=== PATIENT | male | born 1955 | race Caucasian/White ===

== ENCOUNTER → 2020-03-22 | Outpatient (CLI) | payer BC ==
--- NOTE | 2020-03-22 12:27 | MR ---
EXAMINATION TYPE: MR shoulder RT wo con DATE OF EXAM: 03/22/2020 COMPARISON: X-ray dated 03/13/2020 HISTORY: Right shoulder pain and loss of range of motion, hard to lift above head TECHNIQUE: Multiplanar, multisequence imaging of the right shoulder is performed without contrast. FINDINGS: There is arthropathy of the AC joint with impingement of the rotator cuff. There is a compl ete tear of the supraspinatus tendon and near complete tear infraspinatus tendon. Retraction of the t endon seen to the mid humeral head level. Fluid within the subacromial subdeltoid bursa noted. Insertion of the subscapularis demonstrates thic kening of the tendon. Partial tear suspected. Arthropathy of the AC joint results in impingement. Bicipital tendon is well situated within the bicipital groove with increased fluid surrounding the te ndon compatible with tendinosis. Bony labrum grossly intact and nonarthrogram technique. Suprascapular Notch appears intact. Glenohumeral ligaments appear to be intact. IMPRESSION: 1. Impingement secondary to AC joint arthropathy with complete tears of the supraspinatus and near co mplete tear of the infraspinatus tendon with retraction to the mid humeral head level. 2. Tendinopathy and partial tear insertion subscapularis tendon 3. Bicipital tendinosis.
== END | disposition home or self-care (01) ==
LOC: RADMRIMAIN 11:02
PROVIDERS: ATTEND Orthopaedic Surgery
DX: M75.121 Complete rotator cuff tear or rupture of right shoulder, not specified as traumatic (principal); M12.811 Other specific arthropathies, not elsewhere classified, right shoulder; M67.88 Other specified disorders of synovium and tendon, other site

== ENCOUNTER 2020-05-10 10:26 | Day surgery (SDC) | payer BC ==
[2020-05-08 09:36] VITALS: BMI 30.8
--- NOTE | 2020-05-09 15:56 | HP ---
HISTORY AND PHYSICAL DATE OF SURGERY: 05/10/2020 Louis Jain is a 65-year-old patient seen with progressive right shoulder pain. Options for treatment were discussed with him. He elected to proceed with right shoulder arthroscopy. Consent was obtained. PAST MEDICAL HISTORY: Nua-jsidtib-ctltzvsys diabetes, hypertension. PAST SURGICAL HISTORY: Noncontributory. DAILY MEDICATIONS: Januvia, metformin, antihypertensive. ALLERGIES: None. SOCIAL HISTORY: Denies tobacco use. PHYSICAL EVALUATION OF THE RIGHT SHOULDER: Flexion 140, abduction 130, external rotation is 10 with significant weakness, tenderness along the anterolateral acromion and rotator cuff insertion site. Impingement signs is positive 80 degrees. Drop-arm sign is positive. Distal neurovascular exam is intact. RIGHT SHOULDER RADIOGRAPHS: Revealed a type 2 anterior acromion, acromioclavicular joint osteoarthritis and cystic change of the greater tuberosity. An MRI of the right shoulder revealed impingement, large rotator cuff tendon tear, and biceps tendinitis. IMPRESSION: 1. Right shoulder impingement with rotator cuff tear. 2. Right shoulder acromioclavicular joint osteoarthritis. 3. Right shoulder biceps tendinitis. 4. Rmb-kuegnfv-uzeqhgcny diabetes. 5. Hypertension. PLAN: Right shoulder arthroscopy with subacromial decompression, arthroscopic rotator cuff repair, arthroscopic Idris procedure. Biceps tenotomy and debridement. MMODL / IJN: [id number] /
[2020-05-10] MEDS ORDERED: ONDANSETRON 4 MG/2 ML VIAL ONE (10:35)
[2020-05-10] MEDS ORDERED: DEXAMETHASONE SOD PHOSPHATE 10 MG/ML 1 ML VIAL IV ONE (11:13)
[2020-05-10] MEDS ORDERED: LACTATED RINGERS 1,000 ML IV ONE ×2 (11:15→13:41)
[2020-05-10] MEDS ORDERED: MIDAZOLAM 2 MG/2 ML VIAL IVP ONE (11:23)
[2020-05-10 11:38] LABS: Glucose,Whole Blood 159 mg/dL (75-99)
--- NOTE | 2020-05-10 11:59 | P.ANPRN ---
Procedure Note - Anesthesia - Nerve Block Performed Right Interscalene Single Time Out Performed: Yes Date of Procedure: 05/10/20 Procedure Start Time: : Procedure Stop Time: Location of Patient: PreOp Indication: Acute Post-Operative Pain, Requested by Surgeon Sedation Type: Sedate with meaningful contact maintained Preparation: Sterile Prep, Sterile Dressing Position: Sitting Catheter: None Needle Types: Pajunk Needle Gauge: 21 Ultrasound used to visualize needle placement: Yes Ultrasound used to observe medication spread: Yes Injectate: 0.5% Ropivacaine (see comment for volume) (30 ml + decadron 4 mg) Blood Aspirated: No Pain Paresthesia on Injection Noted: No Resistance on Injection: Normal Image Stored and Saved: Yes Events: Uneventful and Well Tolerated
[2020-05-10] MEDS ORDERED: DEXAMETHASONE SOD PHOSPHATE 4 MG/ML 1 ML VIAL ONE (12:11)
[2020-05-10] MEDS ORDERED: KETOROLAC 15 MG/ML 1 ML VIAL ONE (12:11)
[2020-05-10] MEDS ORDERED: SUCCINYLCHOLINE CHLORIDE 100 MG/5 ML SYR IV ONE (12:11)
[2020-05-10] MEDS ORDERED: ROPIVACAINE 5 MG/ML 30 ML VIAL ONE (12:11)
[2020-05-10] MEDS ORDERED: LIDOCAINE 1% INJ 10MG/ML (20 ML MDV) ONE (12:11)
[2020-05-10] MEDS ORDERED: fentaNYL (PF) 50 MCG/ML 2 ML AMP ONE (12:11)
[2020-05-10] MEDS ORDERED: PROPOFOL 10 MG/ML 20 ML VIAL IV ONE (12:11)
[2020-05-10] MEDS ORDERED: MIDAZOLAM 2 MG/2 ML VIAL ONE (12:11)
[2020-05-10 13:52] VITALS: TEMP 97
--- NOTE | 2020-05-10 13:55 | P.OP ---
Date of Procedure: 05/10/20 Preoperative Diagnosis: Right shoulder impingement Postoperative Diagnosis: 1. Right shoulder rotator cuff tear 2. Right shoulder impingement 3. Right shoulder acromioclavicular joint osteoarthritis 4. Right shoulder partial long head biceps tendon tear Procedure(s) Performed: 1. Right shoulder arthroscopic rotator cuff repair 2. Right shoulder arthroscopic subacromial decompression 3. Right shoulder arthroscopic Idris procedure 4. Right shoulder arthroscopic biceps tenotomy Implants: 44.75 Arthrex swivel lock anchors Anesthesia: GETA, regional (Interscalene block) Surgeon: Harley Reina Rayon Winder #1: Damian Wesley Estimated Blood Loss (ml): 10 Pathology: none sent Condition: stable Disposition: PACU Indications for Procedure: 65-year-old patient seen with progressive right shoulder pain. After treatment options were discussed, he elected to proceed with arthroscopy. Operative Findings: see description of procedure Description of Procedure: Patient underwent an interscalene block by department of anesthesia. The patient was then taken to the operative suite. The patient underwent a general anesthetic by the department of anesthesia. The patient was placed into a lateral position and secured. There was appropriate padding of the bony prominence. Right shoulder was then prepped and draped in normal sterile orthopedic fashion. We placed the extremity in 10 pounds of longitudinal traction. A posterior incision was now made for a posterior working portal site. The trocar and cannula were inserted into the glenohumeral joint. Arthroscopy was initiated. Spinal needle was now inserted anteriorly, to ascertain the anterior working portal site. An incision was now made in that area, a trocar was inserted followed by a probe. There was significant partial tearing long head biceps tendon encompassing probably 80% tendon. There were grade 1/2 chondromalacia changes of the glenohumeral joint. There was an obvious large rotator cuff tear. I performed an arthroscopic biceps tenotomy. The labrum was probed and found to be stable. Instruments now removed from glenohumeral joint. Utilizing the posterior working portal site, the trocar and cannula were inserted into the subacromial space. Arthroscopy initiated. I made an incision 2 fingerbreadths lateral to the acromion. I introduced my trocar followed by my ArthroCare ablator. I now began ablating thick subacromial bursal tissue, which exposed the undersurface of the anterior acromion. There was diminished subacromial space. There was a very prominent anterior acromion. A motorized bur was introduced and a subacromial decompression was performed. I also excised some osteophytes off the inferior aspect of the distal clavicle. The AC joint was visualized and noted to be fairly arthritic. The motorized bur was introduced in the anterior portal site and a Idris procedure was performed without difficulty, decompressing the AC joint nicely. I turned my attention to the rotator cuff. There was a 2.53 cm rotator cuff tear. I debrided the margins getting down to stable tendon tissue. I introduced my motorized bur and abraded the footprint area, getting some petechial bleeding. I now made an accessory portal site off the lateral aspect of the acromion. I punched 2 holes medial for medial row fixation with the assistance of Rc REA carefully tapping the punch with a mallet as I held the punch and the camera. I now introduced both anchors into the pre-punched holes and Rc REA tapped them with the mallet as I held anchors and the camera. Rc REA now screwed the anchors in place a while I held the anchor guide and camera. All 8 limbs of suture were now passed through good bites of rotator cuff tendon. I now punched 2 holes for lateral row fixation again I held the punch and camera while Rc REA used a mallet to tap in the punch. We now passed sutures through both anchors and individually I introduced the anchors into the pre- punch holes I held the anchor guide in position with one hand holding the camera with the other hand while Rc REA tensioned the sutures and screwed in the anchors one at a time. All residual suture limbs were now clipped. We had good compression of the tendon along the entire footprint. I injected 1 mL Renyte intra-articular. Instruments now removed from the portal sites. All portal sites were approximated with nylon suture. Sterile dressings were applied followed by a shoulder immobilizer. Damian REA assisted in this complex case. The patient was awakened, transferred to a bed, and taken to recovery in stable condition.
[2020-05-10 14:04] LABS: Glucose,Whole Blood 151 mg/dL (75-99)
[2020-05-10 15:19] VITALS: RESP 16
[2020-05-10 15:48] VITALS: BP 125/74; PULSE 88
== END 2020-05-10 15:48 | disposition home or self-care (01) ==
LOC: OR 10:26
PROVIDERS: ATTEND Orthopaedic Surgery
DX: M75.101 Unspecified rotator cuff tear or rupture of right shoulder, not specified as traumatic (principal); M75.41 Impingement syndrome of right shoulder; M19.011 Primary osteoarthritis, right shoulder; S46.111A Strain of muscle, fascia and tendon of long head of biceps, right arm, initial encounter; X58.XXXA Exposure to other specified factors, initial encounter; M25.711 Osteophyte, right shoulder; I10 Essential (primary) hypertension; E11.9 Type 2 diabetes mellitus without complications; Z87.891 Personal history of nicotine dependence; Z79.84 Long term (current) use of oral hypoglycemic drugs; Z79.899 Other long term (current) drug therapy; Z79.82 Long term (current) use of aspirin; Z98.890 Other specified postprocedural states
CPT/HCPCS: 64415; 76942; 29826; 29827; 29824; C1713 ×2; Q4212; J2250; J1100 ×2; J0690; J2405; J2001; J3010; J2795; J1885; J0330; J2704

== ENCOUNTER 2022-07-10 07:16 | Day surgery (SDC) | payer MEDICARE ==
[2022-07-08 15:20] VITALS: BMI 33.0
[2022-07-10] MEDS ORDERED: LIDOCAINE 1% (10MG/ML) FOR IV START INTRADERMA PRN (07:30)
[2022-07-10] MEDS ORDERED: LACTATED RINGERS 1,000 ML IV SCH (07:30)
[2022-07-10 08:05] LABS: Glucose,Whole Blood 180 mg/dL (70-110)
[2022-07-10] MEDS ORDERED: LACTATED RINGERS 1,000 ML IV ONE (08:05)
[2022-07-10 08:10] VITALS: TEMP 97
[2022-07-10] MEDS ORDERED: PROPOFOL 10 MG/ML 20 ML VIAL IV ONE (08:27)
--- NOTE | 2022-07-10 08:29 | P.GSHP ---
History of Present Illness H&P Date: 07/10/22 Chief Complaint: Screening colonoscopy This a 67-year-old male presents today for screening colonoscopy. Patient denies any significant GI complaints. Past Medical History Past Medical History: Diabetes Mellitus, Eye Disorder, GERD/Reflux, Hyperlipidemia, Hypertension, Osteoarthritis (OA) Additional Past Medical History / Comment(s): Right cataract. History of Any Multi-Drug Resistant Organisms: None Reported Past Surgical History: Appendectomy, Orthopedic Surgery, Tonsillectomy Additional Past Surgical History / Comment(s): Bilateral knee and right shoulder surgery, colonoscopy. Past Anesthesia/Blood Transfusion Reactions: No Reported Reaction Past Psychological History: No Psychological Hx Reported Smoking Status: Former smoker Past Alcohol Use History: Daily Additional Past Alcohol Use History / Comment(s): Quit smoking in 1995. Used to have one alcoholic drink daily none in 3 days. Past Drug Use History: None Reported - Past Family History Father Family Medical History: Cancer Mother Family Medical History: Cancer Sister(s) Family Medical History: Cancer Additional Family Medical History / Comment(s): Breast cancer. Brother(s) Family Medical History: Cancer Additional Family Medical History / Comment(s): Lymph node cancer. Medications and Allergies Home Medications Medication Instructions Recorded Confirmed Type Multivitamins, Thera [Multivitamin 1 tab PO DAILY 05/08/20 07/10/22 History (formulary)] Rosuvastatin Calcium [Crestor] 10 mg PO DAILY 05/08/20 07/10/22 History amLODIPine BESYLATE/BENAZEPRIL 1 each PO QAM 05/08/20 07/10/22 History [amLODIPine BESYLATE/BENAZEPRIL 5-10 MG] metFORMIN HCL [Glucophage] 1,000 mg PO BID 05/08/20 07/10/22 History sitaGLIPtin PHOSPHATE [Januvia] 100 mg PO DAILY 05/08/20 07/10/22 History Cinnamon Bark [Cinnamon] 1,200 mg PO DAILY 07/08/22 07/10/22 History Allergies Allergy/AdvReac Type Severity Reaction Status Date / Time No Known Allergies Allergy Verified 07/10/22 07:52 Surgical - Exam Vital Signs Temp Pulse Resp BP Pulse Ox 97 F L 77 17 134/68 96 07/10/22 08:05 07/10/22 08:05 07/10/22 08:05 07/10/22 08:05 07/10/22 08:05 - General well developed, well nourished, no distress - Eyes PERRL - ENT normal pinna - Neck no masses - Respiratory normal expansion - Cardiovascular Rhythm: regular Results - Labs Abnormal Lab Results - Last 24 Hours (Table) 07/10/22 Range/Units 08:04 POC Glucose (mg/dL) 180 H (70-110) mg/dL Assessment and Plan Assessment: We'll perform screening colonoscopy
[2022-07-10 09:13] VITALS: BP 125/70; PULSE 68; RESP 20
--- NOTE | 2022-07-24 08:15 | P.OP ---
Date of Procedure: 07/10/22 Preoperative Diagnosis: Screening colonoscopy Postoperative Diagnosis: Normal colonoscopy Procedure(s) Performed: Colonoscopy Anesthesia: MAC Surgeon: Tomas Resendez Pathology: none sent Condition: stable Disposition: PACU Description of Procedure: PROCEDURE: The patient was placed on the endoscopy table in the lateral position. Digital rectal examination was performed which revealed no abnormalities. The prostate was symmetrical without nodules. Flexible colonoscope was then placed in the patient's anus and passed throughout the entire colon. The ileocecal valve was visualized. The cecum, ascending, transverse, descending and sigmoid colon were normal. The rectum was normal as well. There were no masses, polyps or diverticula noted in the entire colon. SUMMARY OF FINDINGS: Normal colonoscopy.
== END 2022-07-10 09:23 | disposition home or self-care (01) ==
LOC: ORWHC2ENDO 07:16
PROVIDERS: ATTEND Surgery
DX: Z12.11 Encounter for screening for malignant neoplasm of colon (principal); E11.36 Type 2 diabetes mellitus with diabetic cataract; E78.5 Hyperlipidemia, unspecified; I10 Essential (primary) hypertension; K21.9 Gastro-esophageal reflux disease without esophagitis; M19.90 Unspecified osteoarthritis, unspecified site; Z79.84 Long term (current) use of oral hypoglycemic drugs; Z80.3 Family history of malignant neoplasm of breast; Z87.891 Personal history of nicotine dependence; Z90.49 Acquired absence of other specified parts of digestive tract
CPT/HCPCS: J2704; G0121; 45378

== ENCOUNTER → 2022-12-17 | Outpatient (CLI) | payer MEDICARE ==
--- NOTE | 2022-12-17 12:27 | US ---
EXAMINATION TYPE: US axilla LT DATE OF EXAM: 12/17/2022 COMPARISON: NONE CLINICAL INDICATION: Male, 67 years old with history of N63.32 UNSPECIFIED LUMP IN AXILLARY TAIL OF L FLACO; Patient noticed a fullness in upper left armpit extending into arm, no pain, no injury FINDINGS/IMPRESSION: Soft tissue scan of left axilla extending into left arm produced no sonographic findings for patients symptoms. No solid or cystic mass identified. No adenopathy demonstrated.
== END | disposition home or self-care (01) ==
LOC: RADUSWWP 12:04
PROVIDERS: ATTEND Family Medicine
DX: N63.32 Unspecified lump in axillary tail of the left breast (principal)

== ENCOUNTER → 2024-04-25 | Outpatient (CLI) | payer MEDICARE ==
--- NOTE | 2024-04-25 09:34 | XR ---
EXAMINATION TYPE: XR chest 2V DATE OF EXAM: 04/25/2024 COMPARISON: None INDICATION: Short of breath TECHNIQUE: Frontal and lateral views of the chest are obtained. FINDINGS: The heart size is normal. The pulmonary vasculature is normal. The lungs are clear. IMPRESSION: 1. No acute pulmonary process. [facility], , 04/25/2024 9:31 AM
== END | disposition home or self-care (01) ==
LOC: RADXRMAIN 08:36
PROVIDERS: ATTEND Family Medicine
DX: R06.02 Shortness of breath (principal)
CPT/HCPCS: 71046

== ENCOUNTER 2024-06-13 10:41 | Day surgery (SDC) | payer MEDICARE ==
[~2024-06-13 10:41] MED LIST: ALPRAZolam 0.25 MG TAB PO PRN; ALPRAZolam 0.5 MG TAB PO PRN; ASPIRIN 325 MG TAB PO STA; ATORVASTATIN 80 MG TAB PO STA; HEPARIN SODIUM,PORCINE (1 ML) 2,500 UNIT in SODIUM CHLORIDE 0.9% 250 ML IRRIGATION PRN; HEPARIN SODIUM,PORCINE 10,000 UNIT in SODIUM CHLORIDE 0.9% 1,000 ML IRRIGATION PRN; NITROGLYCERIN SL TABS 0.4 MG TAB SUBLINGUAL PRN
[2024-06-13 10:57] VITALS: RESP 8; TEMP 98
[2024-06-13 11:06] LABS: Glucose,Whole Blood 167 mg/dL (70-110)
[2024-06-13] MEDS: SODIUM CHLORIDE 0.9% 1,000 ML in EMPTY BAG 1 BAG IV SCH (11:32)
[2024-06-13] MEDS: IV FLUID CONTINUATION 1,000 ML IV ONE (11:33)
[2024-06-13] MEDS: HEPARIN SODIUM,PORCINE (1 ML) 2,500 UNIT in SODIUM CHLORIDE 0.9% 250 ML IRRIGATION ONE (11:56)
[2024-06-13] MEDS: HEPARIN SODIUM,PORCINE 10,000 UNIT in SODIUM CHLORIDE 0.9% 1,000 ML IRRIGATION ONE (11:56)
[2024-06-13] MEDS: fentaNYL (PF) 50 MCG/1 ML VIAL IVP ONE (12:10)
[2024-06-13] MEDS: MIDAZOLAM 2 MG/2 ML VIAL IVP ONE (12:10)
[2024-06-13] MEDS: LIDOCAINE 1% INJ 10MG/ML (20 ML MDV) SQ ONE (12:14)
[2024-06-13] MEDS: VERAPAMIL SYRINGE (5 MG/10 ML) INTRAARTER ONE (12:14)
[2024-06-13] MEDS: HEPARIN SODIUM 1,000 UN/ML (10ML VL) IVP ONE (12:18)
[2024-06-13] MEDS: CLOPIDOGREL 75 MG TAB PO ONE (12:45)
--- NOTE | 2024-06-13 12:57 | P.EN ---
Letter to the patient and family Today I did do a heart catheterization procedure for Mr. 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 He has around 80 to 90% blockage in the artery which goes on the back of the heart. There is a vessel he will be getting the stenting done at. The anterior part of the heart is supplied by artery, left into descending artery. This is a major artery of the heart. He has moderate diffuse disease in the artery with around 30 to 40% diffuse disease suggestive of that the vessel is affected by diabetes. To prevent any progression of his heart disease I would recommend very tight glycemic control, compliance to the medications including the 2 blood thinners, cholesterol medication and dietary modification with low-salt, low-cholesterol, low-fat, low carbohydrate diet. I recommend him to participate into cardiac rehab after his PCI. I would recommend for next 3 to 4 days for not using his wrist I would recommend him to take next 3 to 4 days easy If you notice any swelling in the wrist, increased bleeding, concerns of chest pain or chest pressure, please contact [facility]. Chapo Perez
[2024-06-13] MEDS: IOPAMIDOL-370 100ML BTL INJ ONE ×2 (13:22)
[2024-06-13] MEDS ORDERED: MAG HYDROX/AL HYDROX/SIMETH 30 ML CUP PO PRN (13:36)
[2024-06-13] MEDS ORDERED: ZOLPIDEM 5 MG TAB PO PRN (13:36)
[2024-06-13] MEDS ORDERED: RX INFO: IV CONTRAST WAS GIVEN 1 EACH MISC MISCELLANE PRN (13:36)
[2024-06-13] MEDS ORDERED: NITROGLYCERIN SL TABS 0.4 MG TAB SUBLINGUAL PRN (13:36)
[2024-06-13] MEDS ORDERED: ATROPINE SULFATE 0.1 MG/ML 10ML SYRINGE IV PRN (13:36)
--- NOTE | 2024-06-13 13:44 | P.CARDCATH ---
Date of Procedure: 06/13/24 Description of Procedure: PERCUTANEOUS TRANSLUMINAL CORONARY ANGIOPLASTY CLINICAL INFORMATION: The patient is a 69-year-old male with a known history of hypertension, hyperlipidemia and diabetes, followed by Dr. Perez who has been complaining of chest discomfort and had an abnormal stress echocardiogram, he underwent cardiac catheterization and was found to have chronically occluded RCA intimal disease in a diffuse pattern in the LAD and significant stenosis in the mid left circumflex involving the OM1. Recommendations were made regarding angioplasty and stenting. The procedure as well as the risks and the complications were discussed with the patient who was in full understanding and agreement. PROCEDURE: A 6 [place] CLS 3.5 guiding catheter was introduced into the system. After cannulating the left main, a 0.014 BMW J-wire was advanced across the lesion and positioned distally. Following that a 2.5 x 12 mm NC trek balloon was advanced and inflated at 12 atmosphere. After removing the balloon a [facility] eye IVUS catheter was introduced and revealed evidence of diffuse intimal disease with moderate calcification in the distal vessel measuring 3 to 3.5 mm in diameter. Following that a 3.0 x 28 mm Xience nam point stent was deployed. It was dilated at 16 yanci. After removing the balloon repeat IVUS imaging was performed. Subsequently a 3.5 x 15 mm NC trek balloon was advanced and 1 inflation at 10 yanci was done in the proximal segment of the stent. After the last inflation, after appropriate wait, the balloon and the guidewire were withdrawn back into the guiding catheter. Images were obtained and repeated. Those images reveal stable successful stenting. At that point, the guiding catheter, the balloon, and guidewire were removed. The sheath was removed. Hemostasis was obtained with deployment of a TR band. There were no immediate complications. The patient was returned to the room in stable condition. Of note, the patient received an additional 3000 units of heparin as well as Plavix. His ACT was followed. There was no immediate complications. He had no chest discomfort or EKG changes RESULTS: Successful stenting of the mid left circumflex and proximal OM1 with reduction of stenosis from 90% to less than 5% with IVUS imaging and CALLUM-3 flow. RECOMMENDATIONS: The patient will continue on aspirin and clopidogrel without any interruption for 6 months in addition to aggressive coronary risks modification, attempting to maintain LDL below 70 mg/dL the findings and recommendations were discussed with the patient and the family, they are in full understanding and agreement. Duration of sedation: 40 minutes
[2024-06-13] MEDS ORDERED: SODIUM CHLORIDE 0.9% 1,000 ML in EMPTY BAG 1 BAG IV SCH (13:45)
[2024-06-13 15:20] VITALS: PULSE 70
[2024-06-13 15:21] VITALS: BP 133/66
[2024-06-14] MEDS ORDERED: amLODIPine 5 MG TAB PO SCH (09:00)
[2024-06-14] MEDS ORDERED: NON FORMULARY DRUG (Semaglutide [Rybelsus] 3 MG Tablet) PO SCH (09:00)
[2024-06-14] MEDS ORDERED: lisinopriL 10 MG TAB PO SCH (09:00)
[2024-06-14] MEDS ORDERED: ASPIRIN 81 MG PO SCH (09:00)
[2024-06-14] MEDS ORDERED: LINAGLIPTIN 5 MG TABLET PO SCH (09:00)
[2024-06-14] MEDS ORDERED: CLOPIDOGREL 75 MG TAB PO SCH (09:00)
== END 2024-06-13 17:02 | disposition home or self-care (01) ==
LOC: CATHCVL 10:41
PROVIDERS: ATTEND Student in an Organized Health Care Education/Training Program
DX: I25.10 Atherosclerotic heart disease of native coronary artery without angina pectoris (principal); E11.9 Type 2 diabetes mellitus without complications; E78.5 Hyperlipidemia, unspecified; I10 Essential (primary) hypertension; E66.9 Obesity, unspecified; F12.90 Cannabis use, unspecified, uncomplicated; F10.90 Alcohol use, unspecified, uncomplicated; Z79.82 Long term (current) use of aspirin; Z79.84 Long term (current) use of oral hypoglycemic drugs; Z79.899 Other long term (current) drug therapy
CPT/HCPCS: 92978; 93458; C9600; C1769 ×3; C1887; C1894; C1753; C1874; C1725 ×2; J2250; J1644 ×3; J2003; Q9967; J3010